=== PATIENT | male | born 1960 | race Caucasian/White ===

== ENCOUNTER 2017-02-25 00:26 | Inpatient (IN) | payer MEDICAID ==
[~2017-02-25] VITALS: Ht 172.7 cm; Wt 81.6 kg
[2017-02-25 04:51] LABS: BASOPHILS % 0.5 % (0.0-2.0); EOSINOPHILS % 1.9 % (0.0-5.0); HEMATOCRIT. 37.8 % (42.0-52.0); HEMOGLOBIN. 13.3 g/dL (14.0-18.0); LYMPHOCYTES % 16.6 % (20.0-50.0); MEAN CORPUSCULAR HEMOGLOBIN 32.3 pg (28.0-32.0); MEAN CORPUSCULAR VOLUME 92.2 fL (80.0-94.0); MEAN PLATELET VOLUME 8.4 fl (7.4-10.4); MONOCYTES % 8.3 % (2.0-8.0); NEUTROPHILS % 72.7 % (40.0-76.0); PLATELET 247 x1000/uL (130-400); RED CELL DISTRIBUTION WIDTH 13.5 % (11.6-14.6)
[2017-02-25 04:53] LABS: PROTHROMBIN TIME 10.2 sec
[2017-02-25 04:58] LABS: CLARITY URINE CLEAR (CLEAR); COLOR URINE YELLOW (YELLOW); GLUCOSE URINE 3+ (NEGATIVE); KETONES URINE TRACE (NEGATIVE); LEUKOCYTE ESTERASE URINE NEGATIVE (NEGATIVE); NITRITE URINE NEGATIVE (NEGATIVE); OCCULT BLOOD URINE TRACE (NEGATIVE); PROTEIN URINE 2+ (NEGATIVE); SPECIFIC GRAVITY URINE 1.044 (1.005-1.030); UROBILINOGEN URINE 0.2 E.U./dL (0.2-1.0)
[2017-02-25 05:02] LABS: CARBON DIOXIDE 30 mEq/L (21-32); CHLORIDE 97 mEq/L (98-107)
[2017-02-25] MEDS ORDERED: PIPERACILLIN/TAZ 3.375G PREMIX 50 ML IV NR (05:30)
[2017-02-25] MEDS ORDERED: VANCOMYCIN 1 G PREMIX 200 ML IV NR (06:00)
[2017-02-25] MEDS ORDERED: SODIUM CHLORIDE 0.9% 1000ML BAG (SEPSIS BOLUS) IV NR (06:00)
[2017-02-25] MEDS ORDERED: INSULIN LISPRO 100 UNITS/ML SUBCUT ONE (06:00)
[2017-02-25 09:00] VITALS: BP 137/80
[2017-02-25 09:10] VITALS: BP 137/80
[2017-02-25] MEDS ORDERED: DEXTROSE 50% WATER 50ML SYRINGE IV PRN (09:45)
[2017-02-25 10:46] LABS: *AMPHETAMINES SCREEN URINE PRESUMTIVE POSITIVE (NEGATIVE); *BARBITURATES SCREEN URINE NEGATIVE (NEGATIVE); *BENZODIAZEPINES SCREEN URINE NEGATIVE (NEGATIVE); *COCAINE SCREEN URINE PRESUMTIVE POSITIVE (NEGATIVE); CANNABINOID URINE SCREEN PRESUMTIVE POSITIVE (NEGATIVE); METHADONE URINE SCREEN NEGATIVE (NEGATIVE); OPIATES URINE SCREEN NEGATIVE (NEGATIVE); PHENCYCLIDINE URINE SCREEN NEGATIVE (NEGATIVE)
[2017-02-25] MEDS: ENOXAPARIN 40MG/0.4ML SYR SUBCUT SCH (10:55)
[2017-02-25 12:00] VITALS: BP 138/88
[2017-02-25] MEDS ORDERED: ZOSYN XX SCH (12:00)
[2017-02-25] MEDS ORDERED: VANCOMYCIN 750 MG PREMIX 150 ML IV SCH (12:00)
[2017-02-25 12:41] LABS: HEMATOCRIT. 38.4 % (42.0-52.0); HEMOGLOBIN. 13.4 g/dL (14.0-18.0); MEAN CORPUSCULAR HEMOGLOBIN 32.5 pg (28.0-32.0); MEAN CORPUSCULAR VOLUME 93.1 fL (80.0-94.0); MEAN PLATELET VOLUME 8.5 fl (7.4-10.4); PLATELET 235 x1000/uL (130-400); RED BLOOD CELL COUNT 4.13 mill/uL (4.7-6.1); RED CELL DISTRIBUTION WIDTH 13.5 % (11.6-14.6)
[2017-02-25] MEDS: BLOOD SUGAR DIAGNOSTIC STRIP TEST SCH ×3 (13:06→21:48)
[2017-02-25] MEDS: ACETAMINOPHEN 325MG TABLET PO PRN (13:08)
[2017-02-25 13:09] LABS: CARBON DIOXIDE 27 mEq/L (21-32); CHLORIDE 102 mEq/L (98-107); HDL CHOLESTEROL 64 mg/dL (40-59); LDL CHOLESTEROL 71 mg/dL (5-100)
[2017-02-25] MEDS: INSULIN LISPRO 100 UNITS/ML SUBCUT SCH ×3 (13:32→21:50)
[2017-02-25 14:31] LABS: PLATELET ESTIMATE NORMAL
[2017-02-25] MEDS: PIPERACILLIN/TAZ 3.375G PREMIX 50 ML IV SCH ×2 (15:52→21:48)
[2017-02-25 16:00] VITALS: BP 129/78
[2017-02-25 20:00] VITALS: BP 141/80
[2017-02-25] MEDS: VANCOMYCIN 750 MG PREMIX 150 ML IV SCH (20:25)
[2017-02-26] VITALS: BP 142/79
[2017-02-26] MEDS: PIPERACILLIN/TAZ 3.375G PREMIX 50 ML IV SCH ×4 (03:04→20:43)
[2017-02-26] MEDS: ACETAMINOPHEN 325MG TABLET PO PRN (03:17)
[2017-02-26 04:00] VITALS: BP 140/72
[2017-02-26] MEDS: VANCOMYCIN 750 MG PREMIX 150 ML IV SCH ×3 (05:09→22:30)
[2017-02-26] MEDS: BLOOD SUGAR DIAGNOSTIC STRIP TEST SCH ×4 (06:55→22:04)
[2017-02-26 08:00] VITALS: BP 159/99
[2017-02-26] MEDS: INSULIN LISPRO 100 UNITS/ML SUBCUT SCH ×4 (08:51→22:13)
[2017-02-26] MEDS: ENOXAPARIN 40MG/0.4ML SYR SUBCUT SCH (08:51)
[2017-02-26 12:00] VITALS: BP 112/72
[2017-02-26] MEDS: HYDROCODONE/ACETAMINOPHEN 5/325MG TABLET PO PRN ×3 (12:47→22:38)
[2017-02-26 16:00] VITALS: BP 123/78
[2017-02-26 20:00] VITALS: BP 135/74
[2017-02-26] MEDS: INSULIN DETEMIR UD 100 UNITS/ML SYR SUBCUT SCH (22:14)
[2017-02-27] VITALS: BP 111/89
[2017-02-27 04:00] VITALS: BP 147/81
[2017-02-27] MEDS: PIPERACILLIN/TAZ 3.375G PREMIX 50 ML IV SCH ×4 (04:15→21:51)
[2017-02-27 06:27] LABS: CARBON DIOXIDE 29 mEq/L (21-32); CHLORIDE 101 mEq/L (98-107)
[2017-02-27 06:37] LABS: BASOPHILS % 0.5 % (0.0-2.0); EOSINOPHILS % 3.8 % (0.0-5.0); HEMATOCRIT. 36.8 % (42.0-52.0); LYMPHOCYTES % 20.3 % (20.0-50.0); MEAN CORPUSCULAR HEMOGLOBIN 32.5 pg (28.0-32.0); MEAN CORPUSCULAR VOLUME 91.8 fL (80.0-94.0); MEAN PLATELET VOLUME 8.7 fl (7.4-10.4); MONOCYTES % 7.8 % (2.0-8.0); NEUTROPHILS % 67.6 % (40.0-76.0); PLATELET 235 x1000/uL (130-400); RED BLOOD CELL COUNT 4.01 mill/uL (4.7-6.1); RED CELL DISTRIBUTION WIDTH 12.9 % (11.6-14.6)
[2017-02-27] MEDS: HYDROCODONE/ACETAMINOPHEN 5/325MG TABLET PO PRN ×4 (06:41→22:35)
[2017-02-27] MEDS: BLOOD SUGAR DIAGNOSTIC STRIP TEST SCH ×4 (06:48→21:51)
[2017-02-27] MEDS: VANCOMYCIN 750 MG PREMIX 150 ML IV SCH ×3 (06:48→22:34)
[2017-02-27 08:00] VITALS: BP 150/78
[2017-02-27] MEDS: INSULIN LISPRO 100 UNITS/ML SUBCUT SCH ×4 (08:22→21:50)
[2017-02-27] MEDS: ENOXAPARIN 40MG/0.4ML SYR SUBCUT SCH (11:00)
[2017-02-27] MEDS: INSULIN DETEMIR UD 100 UNITS/ML SYR SUBCUT SCH ×2 (11:01→22:38)
[2017-02-27 12:00] VITALS: BP 157/80
[2017-02-27 16:00] VITALS: BP 140/90
[2017-02-27] MEDS: MENTHOL/LANOLIN/CALAMINE/ZN OX OINT 71GM TOP PRN ×2 (16:31→22:36)
[2017-02-27 20:00] VITALS: BP 149/85
[2017-02-28] VITALS: BP 148/72
[2017-02-28] MEDS: PIPERACILLIN/TAZ 3.375G PREMIX 50 ML IV SCH ×4 (03:15→20:05)
[2017-02-28 04:00] VITALS: BP 144/82
[2017-02-28] MEDS: HYDROCODONE/ACETAMINOPHEN 5/325MG TABLET PO PRN ×3 (05:02→18:21)
[2017-02-28] MEDS: VANCOMYCIN 750 MG PREMIX 150 ML IV SCH ×3 (05:02→21:49)
[2017-02-28 05:43] LABS: BASOPHILS % 0.5 % (0.0-2.0); EOSINOPHILS % 4.8 % (0.0-5.0); HEMATOCRIT. 40.3 % (42.0-52.0); HEMOGLOBIN. 14.1 g/dL (14.0-18.0); LYMPHOCYTES % 28.2 % (20.0-50.0); MEAN CORPUSCULAR HEMOGLOBIN 32.2 pg (28.0-32.0); MEAN CORPUSCULAR VOLUME 92.2 fL (80.0-94.0); MEAN PLATELET VOLUME 8.5 fl (7.4-10.4); MONOCYTES % 6.2 % (2.0-8.0); NEUTROPHILS % 60.3 % (40.0-76.0); PLATELET 272 x1000/uL (130-400); RED BLOOD CELL COUNT 4.37 mill/uL (4.7-6.1); RED CELL DISTRIBUTION WIDTH 13.5 % (11.6-14.6)
[2017-02-28 06:15] LABS: CHLORIDE 98 mEq/L (98-107)
[2017-02-28 06:22] LABS: CARBON DIOXIDE 29 mEq/L (21-32)
[2017-02-28] MEDS: BLOOD SUGAR DIAGNOSTIC STRIP TEST SCH ×4 (06:55→20:16)
[2017-02-28] MEDS: MENTHOL/LANOLIN/CALAMINE/ZN OX OINT 71GM TOP PRN ×3 (07:04→21:49)
[2017-02-28 08:00] VITALS: BP 161/93
[2017-02-28] MEDS: INSULIN LISPRO 100 UNITS/ML SUBCUT SCH ×4 (08:26→20:30)
[2017-02-28] MEDS: INSULIN DETEMIR UD 100 UNITS/ML SYR SUBCUT SCH ×2 (09:22→21:54)
[2017-02-28] MEDS: ENOXAPARIN 40MG/0.4ML SYR SUBCUT SCH (09:27)
[2017-02-28 12:00] VITALS: BP 149/99
[2017-02-28 16:00] VITALS: BP 137/84
[2017-02-28 20:00] VITALS: BP 160/94
[2017-03-01] VITALS (7 sets, daily range): BP systolic 124–157; BP diastolic 74–90
[2017-03-01] MEDS: HYDROCODONE/ACETAMINOPHEN 5/325MG TABLET PO PRN ×3 (03:10→21:55)
[2017-03-01] MEDS: PIPERACILLIN/TAZ 3.375G PREMIX 50 ML IV SCH ×4 (03:10→20:02)
[2017-03-01] MEDS: VANCOMYCIN 750 MG PREMIX 150 ML IV SCH ×3 (06:18→21:55)
[2017-03-01 06:29] LABS: BASOPHILS % 0.6 % (0.0-2.0); EOSINOPHILS % 5.4 % (0.0-5.0); HEMATOCRIT. 38.2 % (42.0-52.0); HEMOGLOBIN. 13.5 g/dL (14.0-18.0); LYMPHOCYTES % 21.4 % (20.0-50.0); MEAN CORPUSCULAR HEMOGLOBIN 32.5 pg (28.0-32.0); MEAN CORPUSCULAR VOLUME 91.8 fL (80.0-94.0); MEAN PLATELET VOLUME 8.3 fl (7.4-10.4); MONOCYTES % 5.5 % (2.0-8.0); NEUTROPHILS % 67.1 % (40.0-76.0); PLATELET 269 x1000/uL (130-400); RED BLOOD CELL COUNT 4.16 mill/uL (4.7-6.1); RED CELL DISTRIBUTION WIDTH 13.1 % (11.6-14.6)
[2017-03-01] MEDS: BLOOD SUGAR DIAGNOSTIC STRIP TEST SCH ×4 (06:45→21:00)
[2017-03-01 07:35] LABS: CARBON DIOXIDE 30 mEq/L (21-32); CHLORIDE 100 mEq/L (98-107); VANCOMYCIN TROUGH 12.4 ug/mL (5.0-10.0)
[2017-03-01] MEDS: INSULIN LISPRO 100 UNITS/ML SUBCUT SCH ×4 (07:50→21:57)
[2017-03-01] MEDS: ENOXAPARIN 40MG/0.4ML SYR SUBCUT SCH (09:32)
[2017-03-01] MEDS: INSULIN DETEMIR UD 100 UNITS/ML SYR SUBCUT SCH ×2 (11:41→21:57)
[2017-03-01] MEDS: MENTHOL/LANOLIN/CALAMINE/ZN OX OINT 71GM TOP PRN (20:03)
[2017-03-02] MEDS: PIPERACILLIN/TAZ 3.375G PREMIX 50 ML IV SCH ×4 (02:38→20:24)
[2017-03-02 04:00] VITALS: BP 136/85
[2017-03-02] MEDS: VANCOMYCIN 750 MG PREMIX 150 ML IV SCH (05:36)
[2017-03-02] MEDS: HYDROCODONE/ACETAMINOPHEN 5/325MG TABLET PO PRN ×2 (05:37→16:34)
[2017-03-02] MEDS: BLOOD SUGAR DIAGNOSTIC STRIP TEST SCH ×4 (06:07→21:00)
[2017-03-02] MEDS: INSULIN LISPRO 100 UNITS/ML SUBCUT SCH ×4 (07:50→21:40)
[2017-03-02 08:00] VITALS: BP 145/92
[2017-03-02] MEDS: ENOXAPARIN 40MG/0.4ML SYR SUBCUT SCH (09:00)
[2017-03-02] MEDS: INSULIN DETEMIR UD 100 UNITS/ML SYR SUBCUT SCH ×2 (10:27→21:41)
[2017-03-02] MEDS: VANCOMYCIN 1 G PREMIX 200 ML IV SCH ×2 (13:55→21:38)
[2017-03-02 16:31] VITALS: BP 110/68
[2017-03-02 20:00] VITALS: BP 129/77
[2017-03-02] MEDS: MENTHOL/LANOLIN/CALAMINE/ZN OX OINT 71GM TOP PRN (20:24)
[2017-03-03] VITALS: BP 132/76
[2017-03-03] MEDS: PIPERACILLIN/TAZ 3.375G PREMIX 50 ML IV SCH ×2 (03:36→08:27)
[2017-03-03 04:00] VITALS: BP 153/92
[2017-03-03 06:04] VITALS: BP 153/92
[2017-03-03] MEDS: HYDROCODONE/ACETAMINOPHEN 5/325MG TABLET PO PRN (06:04)
[2017-03-03] MEDS: VANCOMYCIN 1 G PREMIX 200 ML IV SCH (06:05)
[2017-03-03] MEDS: BLOOD SUGAR DIAGNOSTIC STRIP TEST SCH ×2 (06:05→12:20)
[2017-03-03] MEDS: ENOXAPARIN 40MG/0.4ML SYR SUBCUT SCH (08:27)
[2017-03-03] MEDS: INSULIN LISPRO 100 UNITS/ML SUBCUT SCH ×2 (08:33→12:50)
[2017-03-03] MEDS: INSULIN DETEMIR UD 100 UNITS/ML SYR SUBCUT SCH (10:20)
== END 2017-03-03 13:30 | disposition left against medical advice (07) | DRG 344 ==
LOC: ER 00:26 → EDBEDREQ 05:31 → 6EST 05:37 → EDBEDREQ 05:41 → EDBEDREQSVC 05:54 → ENRESERV 07:01
PROVIDERS: ADMIT Internal Medicine; ATTEND Internal Medicine
PROC: 02HV33Z Insertion of Infusion Device into Superior Vena Cava, Percutaneous Approach (ICD-10-PCS; principal; 2017-02-28)
PROC: B5181ZA Fluoroscopy of Superior Vena Cava using Low Osmolar Contrast, Guidance (ICD-10-PCS; 2017-02-28)
PROC: B548ZZA Ultrasonography of Superior Vena Cava, Guidance (ICD-10-PCS; 2017-02-28)
DX: E10.69 Type 1 diabetes mellitus with other specified complication (principal); M86.8X7 Other osteomyelitis, ankle and foot; E10.52 Type 1 diabetes mellitus with diabetic peripheral angiopathy with gangrene; E10.621 Type 1 diabetes mellitus with foot ulcer; E10.65 Type 1 diabetes mellitus with hyperglycemia; E44.1 Mild protein-calorie malnutrition; L97.529 Non-pressure chronic ulcer of other part of left foot with unspecified severity; L03.032 Cellulitis of left toe; I10 Essential (primary) hypertension; M20.40 Other hammer toe(s) (acquired), unspecified foot; F10.20 Alcohol dependence, uncomplicated; D64.9 Anemia, unspecified; Z68.27 Body mass index [BMI] 27.0-27.9, adult
CPT/HCPCS: 36415; 36569; 71010; 73660; 73721; 76937; 77001; 80048; 80053; 80061; 80202; 80305; 81001; 82962; 83036; 83605; 85025; 85610; 85651; 87040; 87070; 87077; 87086; 87186; 87205; 93005; 93923; 96365; 96372; 99285; C1725; G0482; J1650; J1815; J2543; J3370; J7030; J7040

== ENCOUNTER 2017-03-11 23:07 | Emergency (ER) | payer MEDICAID ==
[~2017-03-11] VITALS: Ht 172.7 cm; Wt 82.0 kg
[2017-03-12 06:03] VITALS: BP 145/75
== END 2017-03-12 06:16 | disposition left against medical advice (07) ==
LOC: ER 23:07
DX: M86.9 Osteomyelitis, unspecified (principal); F17.200 Nicotine dependence, unspecified, uncomplicated; F11.10 Opioid abuse, uncomplicated; E11.9 Type 2 diabetes mellitus without complications; I10 Essential (primary) hypertension
CPT/HCPCS: 99283; Z7610

== ENCOUNTER 2018-02-18 21:06 | Emergency (ER) | payer MEDICAID ==
[~2018-02-18] VITALS: Ht 172.7 cm; Wt 79.4 kg
[2018-02-18 21:22] VITALS: BP 133/84
== END 2018-02-18 23:00 | disposition left against medical advice (07) ==
LOC: ER 21:06
DX: M79.672 Pain in left foot (principal); E11.9 Type 2 diabetes mellitus without complications; F12.10 Cannabis abuse, uncomplicated; Z89.422 Acquired absence of other left toe(s); Z53.21 Procedure and treatment not carried out due to patient leaving prior to being seen by health care provider

== ENCOUNTER 2018-12-17 07:58 | Inpatient (IN) | payer MEDICAID ==
[~2018-12-17] VITALS: Ht 175.3 cm; Wt 80.7 kg
[2018-12-17] MEDS ORDERED: IPRATROPIUM BROMIDE (0.02%) 0.5MG/2.5ML NEB HHN STA (10:55)
[2018-12-17] MEDS ORDERED: METHYLPREDNISOLONE SOD SUCC 125 MG/2 ML VIAL IV STA (10:55)
[2018-12-17] MEDS ORDERED: ALBUTEROL (0.083%) 2.5MG/3ML NEB HHN SCH (11:00)
[2018-12-17 11:10] LABS: CHLORIDE 102 mEq/L (98-107)
[2018-12-17 11:11] LABS: HEMATOCRIT. 33.8 % (42.0-52.0); HEMOGLOBIN. 11.2 g/dL (14.0-18.0); MEAN CORPUSCULAR HEMOGLOBIN 29.2 pg (28.0-32.0); MEAN CORPUSCULAR VOLUME 87.8 fL (80.0-94.0); MEAN PLATELET VOLUME 8.7 fl (7.4-10.4); PLATELET 290 x1000/uL (130-400); RED BLOOD CELL COUNT 3.85 mill/uL (4.7-6.1); RED CELL DISTRIBUTION WIDTH 15.7 % (11.6-14.6)
[2018-12-17 11:14] LABS: PROTHROMBIN TIME 10.2 sec (9.6-11.0)
[2018-12-17] MEDS ORDERED: ALBUTEROL (0.5%) 2.5MG/0.5ML NEB HHN ONE (11:20)
[2018-12-17] MEDS ORDERED: IPRATROPIUM/ALBUTEROL 0.5-3(2.5)MG/3ML NEB ONE (11:20)
[2018-12-17 11:40] LABS: PLATELET ESTIMATE NORMAL
[2018-12-17] MEDS ORDERED: AZITHROMYCIN 500 MG in DEXT 5% WATER 250 ML IV ONE (11:45)
[2018-12-17] MEDS ORDERED: CEFTRIAXONE 2 G PREMIX 50 ML IV ONE (11:45)
[2018-12-17] MEDS ORDERED: FUROSEMIDE 40MG/4ML VIAL IVP ONE (12:30)
[2018-12-17] MEDS ORDERED: ASPIRIN 325MG EC TABLET PO ONE (12:30)
[2018-12-17] MEDS ORDERED: ONDANSETRON HCL 4MG/2ML INJ IV PRN (13:45)
[2018-12-17] MEDS ORDERED: IPRATROPIUM/ALBUTEROL 0.5-3(2.5)MG/3ML NEB HHN PRN (13:45)
[2018-12-17] MEDS ORDERED: ACETAMINOPHEN 325MG TABLET PO PRN (13:45)
[2018-12-17] MEDS ORDERED: CLONIDINE 0.1MG TABLET PO PRN (13:45)
[2018-12-17] MEDS ORDERED: GUAIFENESIN-DM 200MG-20MG/10ML UDC PO PRN (13:45)
[2018-12-17 16:06] LABS: CLARITY URINE CLEAR (CLEAR); COLOR URINE YELLOW (YELLOW); KETONES URINE NEGATIVE (NEGATIVE); LEUKOCYTE ESTERASE URINE NEGATIVE (NEGATIVE); NITRITE URINE NEGATIVE (NEGATIVE); OCCULT BLOOD URINE 1+ (NEGATIVE); PROTEIN URINE 3+ (NEGATIVE); SPECIFIC GRAVITY URINE 1.022 (1.005-1.030); UROBILINOGEN URINE 0.2 E.U./dL (0.2-1.0)
[2018-12-17 16:20] LABS: *AMPHETAMINES SCREEN URINE NEGATIVE (NEGATIVE); *BARBITURATES SCREEN URINE NEGATIVE (NEGATIVE); *BENZODIAZEPINES SCREEN URINE NEGATIVE (NEGATIVE); *COCAINE SCREEN URINE NEGATIVE (NEGATIVE)
[2018-12-17 16:21] LABS: CANNABINOID URINE SCREEN PRESUMTIVE POSITIVE (NEGATIVE); METHADONE URINE SCREEN NEGATIVE (NEGATIVE); OPIATES URINE SCREEN NEGATIVE (NEGATIVE); PHENCYCLIDINE URINE SCREEN NEGATIVE (NEGATIVE)
[2018-12-17] MEDS: INSULIN LISPRO 100 UNITS/ML SUBCUT SCH ×2 (19:57→22:40)
[2018-12-17] MEDS ORDERED: DEXTROSE 50% WATER 50ML SYRINGE IV PRN (20:00)
[2018-12-17 20:21] VITALS: BP 125/64
[2018-12-17] MEDS: BLOOD SUGAR DIAGNOSTIC STRIP TEST SCH (20:30)
[2018-12-17] MEDS ORDERED: ENOXAPARIN 40MG/0.4ML SYR SUBCUT SCH (21:00)
[2018-12-17] MEDS ORDERED: IPRATROPIUM/ALBUTEROL 0.5-3(2.5)MG/3ML NEB HHN SCH (22:00)
[2018-12-17] MEDS: GUAIFENESIN 600MG ER TABLET PO SCH (22:36)
[2018-12-18 00:19] VITALS: BP 101/40
[2018-12-18 04:32] VITALS: BP 116/62
[2018-12-18 06:13] LABS: HEMATOCRIT. 33.2 % (42.0-52.0); HEMOGLOBIN. 11.1 g/dL (14.0-18.0); MEAN CORPUSCULAR VOLUME 86.8 fL (80.0-94.0); MEAN PLATELET VOLUME 8.8 fl (7.4-10.4); PLATELET 296 x1000/uL (130-400); RED BLOOD CELL COUNT 3.83 mill/uL (4.7-6.1); RED CELL DISTRIBUTION WIDTH 16.1 % (11.6-14.6)
[2018-12-18] MEDS: BLOOD SUGAR DIAGNOSTIC STRIP TEST SCH (06:30)
[2018-12-18 06:31] LABS: CHLORIDE 104 mEq/L (98-107)
[2018-12-18 08:00] VITALS: BP 105/69
[2018-12-18] MEDS ORDERED: CEFTRIAXONE 1 G PREMIX 50 ML IV SCH (08:00)
[2018-12-18] MEDS: INSULIN LISPRO 100 UNITS/ML SUBCUT SCH (08:22)
[2018-12-18] MEDS: GUAIFENESIN 600MG ER TABLET PO SCH (08:51)
[2018-12-18] MEDS ORDERED: AZITHROMYCIN 500 MG TABLET PO SCH (09:00)
[2018-12-18] MEDS ORDERED: FUROSEMIDE 40MG/4ML VIAL IVP SCH (09:00)
[2018-12-18] MEDS ORDERED: INSULIN GLARGINE UD 100 UNITS/ML SYR SUBCUT SCH (10:00)
[2018-12-18 10:38] LABS: PLATELET ESTIMATE NORMAL
[2018-12-18 13:00] VITALS: BP 104/53
[2018-12-18 14:28] VITALS: BP 104/53
[2018-12-18 16:00] VITALS: BP 126/73
[2018-12-19] MEDS ORDERED: CEFTRIAXONE 1 G PREMIX 50 ML IV SCH (08:00)
== END 2018-12-18 17:01 | disposition home or self-care (01) | DRG 139 ==
LOC: ER 07:58 → 7WST 12:28 → EDBEDREQ 12:30 → ENRESERV 19:46
PROVIDERS: ADMIT Internal Medicine; ATTEND Internal Medicine
DX: J18.1 Lobar pneumonia, unspecified organism (principal); I50.43 Acute on chronic combined systolic (congestive) and diastolic (congestive) heart failure; E44.0 Moderate protein-calorie malnutrition; I11.0 Hypertensive heart disease with heart failure; E11.65 Type 2 diabetes mellitus with hyperglycemia; D64.9 Anemia, unspecified; J44.0 Chronic obstructive pulmonary disease with (acute) lower respiratory infection; E87.1 Hypo-osmolality and hyponatremia; F15.10 Other stimulant abuse, uncomplicated; F12.10 Cannabis abuse, uncomplicated; Z96.659 Presence of unspecified artificial knee joint; Z71.51 Drug abuse counseling and surveillance of drug abuser; Z91.14 Patient's other noncompliance with medication regimen; Z68.26 Body mass index [BMI] 26.0-26.9, adult; Z79.84 Long term (current) use of oral hypoglycemic drugs
CPT/HCPCS: 36415; 71045; 80048; 80305; 82962; 83036; 83880; 84484; 93005; 93306; 94640; 96365; 96368; 96375; 99285; J0456; J0696; J1650; J1815; J1940; J2930; J7060; J7611; J7620

== ENCOUNTER 2019-05-11 01:25 | Inpatient (IN) | payer MEDICAID ==
[~2019-05-11] VITALS: Ht 172.7 cm; Wt 88.5 kg
[2019-05-11] MEDS ORDERED: VANCOMYCIN 1 G PREMIX 200 ML IV SCH (04:30)
[2019-05-11] MEDS ORDERED: MORPHINE SULFATE 2 MG/ML CPJ (NOT FOR IM USE) IV ONE (04:30)
[2019-05-11] MEDS ORDERED: ONDANSETRON HCL 4MG/2ML INJ IV ONE (04:30)
[2019-05-11 04:54] LABS: BASOPHILS % 0.7 % (0.0-2.0); EOSINOPHILS % 3.7 % (0.0-5.0); HEMATOCRIT. 30.8 % (42.0-52.0); HEMOGLOBIN. 10.6 g/dL (14.0-18.0); LYMPHOCYTES % 17.5 % (20.0-50.0); MEAN CORPUSCULAR HEMOGLOBIN 31.9 pg (28.0-32.0); MEAN CORPUSCULAR VOLUME 92.3 fL (80.0-94.0); MEAN PLATELET VOLUME 8.4 fl (7.4-10.4); MONOCYTES % 8.8 % (2.0-8.0); NEUTROPHILS % 69.3 % (40.0-76.0); PLATELET 197 x1000/uL (130-400); RED BLOOD CELL COUNT 3.33 mill/uL (4.7-6.1); RED CELL DISTRIBUTION WIDTH 14.7 % (11.6-14.6)
[2019-05-11 04:56] LABS: CHLORIDE 107 mEq/L (98-107)
[2019-05-11 04:58] LABS: PROTHROMBIN TIME 10.1 sec (9.6-11.0)
[2019-05-11 08:32] LABS: COLOR URINE YELLOW (YELLOW); KETONES URINE NEGATIVE (NEGATIVE); LEUKOCYTE ESTERASE URINE NEGATIVE (NEGATIVE); NITRITE URINE NEGATIVE (NEGATIVE); OCCULT BLOOD URINE 1+ (NEGATIVE); PH URINE 5.5 (4.5-8.0); PROTEIN URINE 3+ (NEGATIVE)
[2019-05-11 08:33] LABS: CLARITY URINE CLEAR (CLEAR)
[2019-05-11 09:00] VITALS: BP 123/69
[2019-05-11 10:05] VITALS: BP 141/82
[2019-05-11] MEDS ORDERED: ONDANSETRON HCL 4MG/2ML INJ IV PRN (10:15)
[2019-05-11] MEDS ORDERED: ACETAMINOPHEN 325MG TABLET PO PRN (11:00)
[2019-05-11 12:00] VITALS: BP 129/76
[2019-05-11] MEDS: HYDROCODONE/ACETAMINOPHEN 5/325MG TABLET PO PRN (12:24)
[2019-05-11] MEDS: PIPERACILLIN/TAZOBACTAM 3.375 G in DEXT 5% WATER 100 ML IV SCH ×2 (13:15→18:09)
[2019-05-11] MEDS ORDERED: LIDOCAINE HCL 1% 20ML VIAL (Pyxis) INJ INFIL NR (13:30)
[2019-05-11] MEDS: VANCOMYCIN 1 G PREMIX 200 ML IV SCH ×2 (14:20→20:16)
[2019-05-11 16:00] VITALS: BP 125/73
[2019-05-11] MEDS: METFORMIN HCL 500MG TABLET PO SCH (18:01)
[2019-05-11] MEDS ORDERED: POTASSIUM CHLORIDE 20MEQ TABLET SR PO NR (19:45)
[2019-05-11 20:00] VITALS: BP 152/85
[2019-05-12] VITALS: BP 147/84
[2019-05-12] MEDS: PIPERACILLIN/TAZOBACTAM 3.375 G in DEXT 5% WATER 100 ML IV SCH ×5 (00:25→23:47)
[2019-05-12 04:00] VITALS: BP 116/77
[2019-05-12] MEDS: HYDROCODONE/ACETAMINOPHEN 5/325MG TABLET PO PRN ×3 (04:04→23:42)
[2019-05-12] MEDS: VANCOMYCIN 1 G PREMIX 200 ML IV SCH ×3 (06:21→21:04)
[2019-05-12 07:09] LABS: BASOPHILS % 0.5 % (0.0-2.0); EOSINOPHILS % 4.5 % (0.0-5.0); HEMATOCRIT. 31.3 % (42.0-52.0); HEMOGLOBIN. 10.8 g/dL (14.0-18.0); MEAN CORPUSCULAR HEMOGLOBIN 31.5 pg (28.0-32.0); MEAN CORPUSCULAR VOLUME 91.3 fL (80.0-94.0); MEAN PLATELET VOLUME 8.6 fl (7.4-10.4); MONOCYTES % 7.2 % (2.0-8.0); NEUTROPHILS % 71.8 % (40.0-76.0); PLATELET 216 x1000/uL (130-400); RED BLOOD CELL COUNT 3.43 mill/uL (4.7-6.1); RED CELL DISTRIBUTION WIDTH 14.5 % (11.6-14.6)
[2019-05-12 07:45] LABS: CHLORIDE 104 mEq/L (98-107)
[2019-05-12] MEDS: METFORMIN HCL 500MG TABLET PO SCH ×3 (07:52→18:01)
[2019-05-12] MEDS ORDERED: BUPIVACAINE HCL/PF 0.5% (5MG/ML) 10ML ONE (07:59)
[2019-05-12] MEDS ORDERED: LIDOCAINE HCL 1% 20ML VIAL (Pyxis) INJ ONE (07:59)
[2019-05-12 08:00] VITALS: BP 119/74
[2019-05-12] MEDS ORDERED: NORMAL SALINE 0.9% 10 ML SYR ONE (08:00)
[2019-05-12] MEDS ORDERED: BACITRACIN 50,000 UNITS/VIAL ONE (08:00)
[2019-05-12] MEDS ORDERED: DIPHENHYDRAMINE 50MG/ML VIAL ONE (08:37)
[2019-05-12] MEDS ORDERED: PROPOFOL 200MG/20ML VIAL IV ONE (08:37)
[2019-05-12] MEDS ORDERED: ONDANSETRON HCL 4MG/2ML INJ ONE (08:37)
[2019-05-12] MEDS ORDERED: LIDOCAINE HCL/PF 1% 10 MG/ML 5ML VIAL ONE (08:38)
[2019-05-12] MEDS ORDERED: CEFAZOLIN SODIUM 1000MG/VIAL ONE (08:38)
[2019-05-12] MEDS ORDERED: MIDAZOLAM HCL 2 MG/2 ML VIAL ONE (09:00)
[2019-05-12] MEDS ORDERED: FENTANYL CITRATE/PF 50MCG/ML 2ML VIAL ONE (09:00)
[2019-05-12 09:03] LABS: T4 FREE 1.13 ng/dL (0.76-1.46)
[2019-05-12 09:12] LABS: *AMPHETAMINES SCREEN URINE PRESUMTIVE POSITIVE (NEGATIVE); *BARBITURATES SCREEN URINE NEGATIVE (NEGATIVE); *BENZODIAZEPINES SCREEN URINE NEGATIVE (NEGATIVE)
[2019-05-12 09:13] LABS: *COCAINE SCREEN URINE NEGATIVE (NEGATIVE); CANNABINOID URINE SCREEN NEGATIVE (NEGATIVE); METHADONE URINE SCREEN NEGATIVE (NEGATIVE); OPIATES URINE SCREEN PRESUMTIVE POSITIVE (NEGATIVE); PHENCYCLIDINE URINE SCREEN NEGATIVE (NEGATIVE)
[2019-05-12] MEDS ORDERED: HYDROMORPHONE HCL/PF 2MG/ML CPJ IV PRN (10:30)
[2019-05-12] MEDS ORDERED: ONDANSETRON HCL 4MG/2ML INJ IV PRN (10:30)
[2019-05-12 12:00] VITALS: BP 139/76
[2019-05-12 16:00] VITALS: BP 122/66
[2019-05-12 16:12] LABS: CREATINE KINASE MB FRACTION 1.2 ng/mL (0.5-3.6)
[2019-05-12 20:00] VITALS: BP 143/78
[2019-05-12] MEDS: CARVEDILOL 3.125 MG TABLET PO SCH (20:52)
[2019-05-13] VITALS: BP 121/66
[2019-05-13 00:57] LABS: CREATINE KINASE 49 IU/L (39-308); CREATINE KINASE MB FRACTION < 1.0 ng/mL (0.5-3.6)
[2019-05-13 04:00] VITALS: BP 123/59
[2019-05-13] MEDS: VANCOMYCIN 1 G PREMIX 200 ML IV SCH ×2 (05:06→14:00)
[2019-05-13] MEDS: PIPERACILLIN/TAZOBACTAM 3.375 G in DEXT 5% WATER 100 ML IV SCH ×2 (05:10→12:57)
[2019-05-13] MEDS: HYDROCODONE/ACETAMINOPHEN 5/325MG TABLET PO PRN (06:27)
[2019-05-13] MEDS: METFORMIN HCL 500MG TABLET PO SCH (07:50)
[2019-05-13 08:00] VITALS: BP 116/74
[2019-05-13 08:34] LABS: VANCOMYCIN TROUGH 32.1 ug/mL (5.0-10.0)
[2019-05-13] MEDS ORDERED: LOSARTAN POTASSIUM 50 MG TABLET PO SCH (09:00)
[2019-05-13] MEDS: CARVEDILOL 3.125 MG TABLET PO SCH (09:24)
[2019-05-13 12:00] VITALS: BP 146/78
[2019-05-13] MEDS ORDERED: DOXY100T2 MT (14:04)
[2019-05-13] MEDS ORDERED: HYDR-4001 MT (14:04)
[2019-05-13] MEDS ORDERED: AMOX-424 MT (14:04)
[2019-05-13 15:04] VITALS: BP 155/78
[2019-05-13 16:00] VITALS: BP 141/71
== END 2019-05-13 16:28 | disposition home or self-care (01) | DRG 314 ==
LOC: ER 01:25 → 6EST 05:55 → ENRESERV 08:04 → EDBEDREQ 08:18
PROVIDERS: ADMIT Internal Medicine; ATTEND Internal Medicine
PROC: 0QBQ0ZZ Excision of Right Toe Phalanx, Open Approach (ICD-10-PCS; principal; 2019-05-11)
PROC: 0JDQ0ZZ Extraction of Right Foot Subcutaneous Tissue and Fascia, Open Approach (ICD-10-PCS; 2019-05-11)
PROC: 0Y6V0Z3 Detachment at Right 4th Toe, Low, Open Approach (ICD-10-PCS; 2019-05-12)
PROC: 0JBR0ZZ Excision of Left Foot Subcutaneous Tissue and Fascia, Open Approach (ICD-10-PCS; 2019-05-12)
DX: E11.69 Type 2 diabetes mellitus with other specified complication (principal); I42.9 Cardiomyopathy, unspecified; E44.0 Moderate protein-calorie malnutrition; M86.8X7 Other osteomyelitis, ankle and foot; E11.51 Type 2 diabetes mellitus with diabetic peripheral angiopathy without gangrene; I50.22 Chronic systolic (congestive) heart failure; I11.0 Hypertensive heart disease with heart failure; L97.519 Non-pressure chronic ulcer of other part of right foot with unspecified severity; E11.42 Type 2 diabetes mellitus with diabetic polyneuropathy; E11.621 Type 2 diabetes mellitus with foot ulcer; F15.90 Other stimulant use, unspecified, uncomplicated; F12.90 Cannabis use, unspecified, uncomplicated; L84 Corns and callosities; E78.5 Hyperlipidemia, unspecified; E11.622 Type 2 diabetes mellitus with other skin ulcer; Z96.659 Presence of unspecified artificial knee joint; Z87.891 Personal history of nicotine dependence; Z91.19 Patient's noncompliance with other medical treatment and regimen; Z86.73 Personal history of transient ischemic attack (TIA), and cerebral infarction without residual deficits; Z91.14 Patient's other noncompliance with medication regimen; Z68.29 Body mass index [BMI] 29.0-29.9, adult; Z79.899 Other long term (current) drug therapy; Z71.51 Drug abuse counseling and surveillance of drug abuser
CPT/HCPCS: 36415; 73630; 73721; 80048; 80061; 80202; 80305; 81003; 82550; 82553; 82962; 83036; 83605; 83880; 84439; 84443; 84484; 85651; 86140; 87070; 87075; 87077; 87186; 88305; 88311; 93005; 93306; 93971; 96365; 97162; 99285; C1893; J0690; J1200; J2250; J2270; J2405; J2543; J2704; J3010; J3370; J3490; J7060

== ENCOUNTER 2019-06-14 00:12 | Emergency (ER) | payer MEDICAID ==
[~2019-06-14 00:12] MED LIST: AMOX-424 MT; DOXY100T2 MT; HYDR-4001 MT
== END 2019-06-14 03:06 | disposition left against medical advice (07) ==
LOC: ER 02:05
DX: Z53.21 Procedure and treatment not carried out due to patient leaving prior to being seen by health care provider (principal)

== ENCOUNTER 2019-06-14 07:00 | Inpatient (IN) | payer MEDICAID ==
[~2019-06-14] VITALS: Ht 172.7 cm; Wt 92.1 kg
[2019-06-14] MEDS ORDERED: CLINDAMYCIN 600 MG in DEXTROSE 5% WATER 50 ML IV ONE (07:45)
[2019-06-14 08:01] LABS: BASOPHILS % 0.4 % (0.0-2.0); EOSINOPHILS % 4.7 % (0.0-5.0); HEMOGLOBIN. 11.3 g/dL (14.0-18.0); MEAN CORPUSCULAR HEMOGLOBIN 32.3 pg (28.0-32.0); MEAN PLATELET VOLUME 8.1 fl (7.4-10.4); MONOCYTES % 7.6 % (2.0-8.0); NEUTROPHILS % 69.3 % (40.0-76.0); PLATELET 249 x1000/uL (130-400); RED BLOOD CELL COUNT 3.51 mill/uL (4.7-6.1); RED CELL DISTRIBUTION WIDTH 15.1 % (11.6-14.6)
[2019-06-14 08:06] LABS: CHLORIDE 104 mEq/L (98-107)
[2019-06-14 08:12] LABS: INR 0.9; PROTHROMBIN TIME 9.6 sec (9.6-11.0)
[2019-06-14] MEDS ORDERED: VANCOMYCIN 1 G PREMIX 200 ML IV SCH (09:00)
[2019-06-14 13:15] VITALS: BP 150/86
[2019-06-14 14:00] VITALS: BP 150/86
[2019-06-14] MEDS ORDERED: CLONIDINE 0.1MG TABLET PO PRN (14:00)
[2019-06-14] MEDS ORDERED: DEXTROSE 50% WATER 50ML SYRINGE IV PRN (14:00)
[2019-06-14] MEDS ORDERED: ONDANSETRON HCL 4MG/2ML INJ IV PRN (14:00)
[2019-06-14 14:45] LABS: *AMPHETAMINES SCREEN URINE PRESUMTIVE POSITIVE (NEGATIVE); *BARBITURATES SCREEN URINE NEGATIVE (NEGATIVE); *BENZODIAZEPINES SCREEN URINE NEGATIVE (NEGATIVE)
[2019-06-14 14:46] LABS: *COCAINE SCREEN URINE NEGATIVE (NEGATIVE); CANNABINOID URINE SCREEN PRESUMTIVE POSITIVE (NEGATIVE); METHADONE URINE SCREEN NEGATIVE (NEGATIVE); OPIATES URINE SCREEN NEGATIVE (NEGATIVE); PHENCYCLIDINE URINE SCREEN NEGATIVE (NEGATIVE)
[2019-06-14] MEDS ORDERED: INFLUENZA VIRUS VACCINE(AFLURIA) 0.5ML SYR IM ONE (16:15)
[2019-06-14] MEDS: BLOOD SUGAR DIAGNOSTIC STRIP TEST SCH ×2 (17:06→20:56)
[2019-06-14] MEDS: INSULIN LISPRO 100 UNITS/ML SUBCUT SCH ×2 (17:30→21:06)
[2019-06-14] MEDS: VANCOMYCIN 1 G PREMIX 200 ML IV SCH ×2 (17:30→20:46)
[2019-06-14 20:00] VITALS: BP 133/73
[2019-06-14] MEDS: AMLODIPINE 5MG TABLET PO SCH (20:44)
[2019-06-15] VITALS: BP 118/78
[2019-06-15 04:00] VITALS: BP 140/76
[2019-06-15] MEDS: VANCOMYCIN 1 G PREMIX 200 ML IV SCH (04:52)
[2019-06-15] MEDS: BLOOD SUGAR DIAGNOSTIC STRIP TEST SCH ×4 (04:52→21:00)
[2019-06-15] MEDS: INSULIN LISPRO 100 UNITS/ML SUBCUT SCH ×4 (05:01→21:54)
[2019-06-15] MEDS: GUAIFENESIN-DM 200MG-20MG/10ML UDC PO PRN ×3 (05:38→20:49)
[2019-06-15 07:10] LABS: BASOPHILS % 0.8 % (0.0-2.0); EOSINOPHILS % 7.2 % (0.0-5.0); HEMATOCRIT. 32.6 % (42.0-52.0); HEMOGLOBIN. 11.1 g/dL (14.0-18.0); LYMPHOCYTES % 16.8 % (20.0-50.0); MEAN CORPUSCULAR HEMOGLOBIN 31.1 pg (28.0-32.0); MEAN CORPUSCULAR VOLUME 91.9 fL (80.0-94.0); MEAN PLATELET VOLUME 9.1 fl (7.4-10.4); NEUTROPHILS % 68.2 % (40.0-76.0); PLATELET 263 x1000/uL (130-400); RED BLOOD CELL COUNT 3.55 mill/uL (4.7-6.1); RED CELL DISTRIBUTION WIDTH 14.8 % (11.6-14.6)
[2019-06-15 07:33] LABS: CHLORIDE 102 mEq/L (98-107)
[2019-06-15 07:46] LABS: VANCOMYCIN TROUGH 15.4 ug/mL (5.0-10.0)
[2019-06-15 08:00] VITALS: BP 140/81
[2019-06-15] MEDS: AMLODIPINE 5MG TABLET PO SCH ×2 (09:11→20:50)
[2019-06-15] MEDS: LISINOPRIL 20MG TABLET PO SCH (09:11)
[2019-06-15 12:00] VITALS: BP 133/77
[2019-06-15] MEDS: VANCOMYCIN 1250MG in DEXTROSE 5% WATER 250ML IV SCH ×2 (12:36→20:50)
[2019-06-15 16:00] VITALS: BP 140/81
[2019-06-15] MEDS: PIPERACILLIN/TAZOBACTAM 3.375 G in DEXT 5% WATER 100 ML IV SCH (17:47)
[2019-06-15] MEDS: HYDROCODONE/ACETAMINOPHEN 5/325MG TABLET PO PRN (19:04)
[2019-06-15 20:00] VITALS: BP 141/74
[2019-06-15] MEDS: INSULIN GLARGINE UD 100 UNITS/ML SYR SUBCUT SCH (21:54)
[2019-06-16] VITALS: BP 138/72
[2019-06-16] MEDS: PIPERACILLIN/TAZOBACTAM 3.375 G in DEXT 5% WATER 100 ML IV SCH ×4 (00:33→18:10)
[2019-06-16 04:00] VITALS: BP 137/72
[2019-06-16] MEDS: VANCOMYCIN 1250MG in DEXTROSE 5% WATER 250ML IV SCH ×3 (04:57→21:25)
[2019-06-16] MEDS: BLOOD SUGAR DIAGNOSTIC STRIP TEST SCH ×4 (06:14→20:50)
[2019-06-16] MEDS: GUAIFENESIN-DM 200MG-20MG/10ML UDC PO PRN ×2 (06:26→18:15)
[2019-06-16] MEDS: INSULIN LISPRO 100 UNITS/ML SUBCUT SCH ×4 (06:28→20:50)
[2019-06-16 08:00] VITALS: BP 169/86
[2019-06-16] MEDS: AMLODIPINE 5MG TABLET PO SCH ×2 (09:24→21:25)
[2019-06-16] MEDS: LISINOPRIL 20MG TABLET PO SCH (09:25)
[2019-06-16] MEDS: HYDROCODONE/ACETAMINOPHEN 5/325MG TABLET PO PRN ×2 (10:38→21:26)
[2019-06-16] MEDS: INSULIN GLARGINE UD 100 UNITS/ML SYR SUBCUT SCH ×2 (10:43→21:33)
[2019-06-16 12:00] VITALS: BP 118/64
[2019-06-16 16:00] VITALS: BP 150/87
[2019-06-16 20:00] VITALS: BP 151/82
[2019-06-17] VITALS: BP 124/67
[2019-06-17] MEDS: PIPERACILLIN/TAZOBACTAM 3.375 G in DEXT 5% WATER 100 ML IV SCH ×4 (00:34→17:35)
[2019-06-17 04:00] VITALS: BP 130/69
[2019-06-17] MEDS: VANCOMYCIN 1250MG in DEXTROSE 5% WATER 250ML IV SCH (05:55)
[2019-06-17] MEDS: INSULIN LISPRO 100 UNITS/ML SUBCUT SCH ×3 (06:07→17:51)
[2019-06-17] MEDS: BLOOD SUGAR DIAGNOSTIC STRIP TEST SCH ×3 (06:08→17:29)
[2019-06-17 08:00] VITALS: BP 153/85
[2019-06-17] MEDS: AMLODIPINE 5MG TABLET PO SCH (09:16)
[2019-06-17] MEDS: LISINOPRIL 20MG TABLET PO SCH (09:16)
[2019-06-17] MEDS: INSULIN GLARGINE UD 100 UNITS/ML SYR SUBCUT SCH (11:13)
[2019-06-17 12:00] VITALS: BP 149/80
[2019-06-17 16:27] VITALS: BP 148/74
[2019-06-17] MEDS ORDERED: VANCOMYCIN 1 G PREMIX 200 ML IV SCH (17:00)
[2019-06-17 17:49] VITALS: BP 148/74
[2019-06-17] MEDS: HYDROCODONE/ACETAMINOPHEN 5/325MG TABLET PO PRN (17:49)
== END 2019-06-17 19:10 | DRG 320 ==
LOC: ER 07:00 → 6WST 07:10 → UNDOADMIN 07:10 → 8WST 09:14 → EDBEDREQ 09:24 → ENRESERV 12:45
PROVIDERS: ADMIT Internal Medicine; ATTEND Internal Medicine
PROC: 0JBR0ZZ Excision of Left Foot Subcutaneous Tissue and Fascia, Open Approach (ICD-10-PCS; principal; 2019-06-15)
PROC: 0QBQ0ZZ Excision of Right Toe Phalanx, Open Approach (ICD-10-PCS; 2019-06-15)
DX: T87.81 Dehiscence of amputation stump (principal); E11.42 Type 2 diabetes mellitus with diabetic polyneuropathy; E11.621 Type 2 diabetes mellitus with foot ulcer; M86.9 Osteomyelitis, unspecified; E44.1 Mild protein-calorie malnutrition; I50.22 Chronic systolic (congestive) heart failure; I11.0 Hypertensive heart disease with heart failure; T87.43 Infection of amputation stump, right lower extremity; Y83.5 Amputation of limb(s) as the cause of abnormal reaction of the patient, or of later complication, without mention of misadventure at the time of the procedure; E11.69 Type 2 diabetes mellitus with other specified complication; F15.90 Other stimulant use, unspecified, uncomplicated; F12.90 Cannabis use, unspecified, uncomplicated; Z96.659 Presence of unspecified artificial knee joint; L97.529 Non-pressure chronic ulcer of other part of left foot with unspecified severity; Z79.899 Other long term (current) drug therapy; Z68.30 Body mass index [BMI] 30.0-30.9, adult; Z71.51 Drug abuse counseling and surveillance of drug abuser; Z89.421 Acquired absence of other right toe(s); Z89.422 Acquired absence of other left toe(s); Z86.73 Personal history of transient ischemic attack (TIA), and cerebral infarction without residual deficits; Z91.14 Patient's other noncompliance with medication regimen; Y92.89 Other specified places as the place of occurrence of the external cause
CPT/HCPCS: 36415; 71045; 73630; 80048; 80202; 80305; 82962; 85651; 86140; 87070; 87075; 87077; 87186; 93971; 97162; 99285; J1815; J2543; J3370; J3490; J7040; J7060

== ENCOUNTER 2019-06-22 13:13 | Emergency (ER) | payer MEDICAID ==
[~2019-06-22] VITALS: Ht 172.7 cm; Wt 110.0 kg
[2019-06-22] MEDS ORDERED: SULFAMETHOXAZOLE/TRIMETHOPRIM 800/160MG TABLET PO ONE (16:30)
[2019-06-22] MEDS ORDERED: AMOXICILLIN/POTASSIUM CLAVULANATE 875/125MG TAB PO ONE (16:30)
[2019-06-22 21:31] VITALS: BP 136/98
== END 2019-06-22 23:09 | disposition home or self-care (01) ==
LOC: ER 13:13
DX: E11.621 Type 2 diabetes mellitus with foot ulcer (principal); E11.40 Type 2 diabetes mellitus with diabetic neuropathy, unspecified; L97.511 Non-pressure chronic ulcer of other part of right foot limited to breakdown of skin; I10 Essential (primary) hypertension; F17.200 Nicotine dependence, unspecified, uncomplicated; Z89.421 Acquired absence of other right toe(s); Z96.659 Presence of unspecified artificial knee joint
CPT/HCPCS: 99283

== ENCOUNTER 2020-01-28 23:52 | Emergency (ER) | payer MEDICAID ==
[~2020-01-28] VITALS: Ht 172.7 cm; Wt 86.9 kg
[2020-01-29 02:05] LABS: BASOPHILS % 1.3 % (0.0-2.0); EOSINOPHILS % 0.5 % (0.0-5.0); HEMATOCRIT. 32.2 % (42.0-52.0); HEMOGLOBIN. 10.7 g/dL (14.0-18.0); LYMPHOCYTES % 18.4 % (20.0-50.0); MEAN CORPUSCULAR HEMOGLOBIN 30.3 pg (28.0-32.0); MEAN CORPUSCULAR VOLUME 91.3 fL (80.0-94.0); MEAN PLATELET VOLUME 9.5 fl (7.4-10.4); MONOCYTES % 5.4 % (2.0-8.0); NEUTROPHILS % 74.4 % (40.0-76.0); PLATELET 306 x1000/uL (130-400); RED BLOOD CELL COUNT 3.53 mill/uL (4.7-6.1); RED CELL DISTRIBUTION WIDTH 14.3 % (11.6-14.6)
[2020-01-29 02:11] LABS: CHLORIDE 100 mEq/L (98-107)
[2020-01-29] MEDS ORDERED: HEPARIN 5000 UNITS/ML VIAL IV NR (02:45)
[2020-01-29] MEDS ORDERED: HEPARIN 25,000 UNITS PREMIX 500 ML IV PRN (02:45)
[2020-01-29] MEDS ORDERED: ASPIRIN 325MG EC TABLET PO NR (02:45)
[2020-01-29 03:45] LABS: CLARITY URINE CLEAR (CLEAR); COLOR URINE YELLOW (YELLOW); SPECIFIC GRAVITY URINE 1.038 (1.005-1.030)
[2020-01-29 03:46] LABS: KETONES URINE NEGATIVE (NEGATIVE); LEUKOCYTE ESTERASE URINE NEGATIVE (NEGATIVE); NITRITE URINE NEGATIVE (NEGATIVE); OCCULT BLOOD URINE 2+ (NEGATIVE); PROTEIN URINE 3+ (NEGATIVE)
[2020-01-29 04:08] VITALS: BP 142/100
[2020-01-29] MEDS ORDERED: HEPARIN BOLUS PRN aPTT <30 IV (04:15)
[2020-01-29] MEDS ORDERED: HEPARIN BOLUS PRN aPTT 30-44 IV (04:15)
[2020-01-29] MEDS ORDERED: HEPARIN 25,000 UNITS PREMIX 500 ML IV SCH (04:15)
== END 2020-01-29 04:20 | disposition short-term general hospital (02) ==
LOC: ER 23:52
DX: I21.3 ST elevation (STEMI) myocardial infarction of unspecified site (principal); L97.529 Non-pressure chronic ulcer of other part of left foot with unspecified severity; E11.9 Type 2 diabetes mellitus without complications; E78.00 Pure hypercholesterolemia, unspecified; I25.10 Atherosclerotic heart disease of native coronary artery without angina pectoris; I11.9 Hypertensive heart disease without heart failure; F17.210 Nicotine dependence, cigarettes, uncomplicated; Z96.659 Presence of unspecified artificial knee joint
CPT/HCPCS: 36415; 71045; 80053; 81003; 82962; 83880; 84484; 85025; 85730; 93005; 96374; 99291; J1644; Z7610

== ENCOUNTER 2020-03-31 00:53 | Inpatient (IN) | payer MEDICAID ==
[~2020-03-31] VITALS: Ht 172.7 cm; Wt 131.1 kg
[2020-03-31] MEDS ORDERED: ASPIRIN 81MG TABLET PO ONE (01:15)
[2020-03-31 01:54] LABS: BASOPHILS % 0.7 % (0.0-2.0); EOSINOPHILS % 2.3 % (0.0-5.0); HEMATOCRIT. 26.7 % (42.0-52.0); HEMOGLOBIN. 8.6 g/dL (14.0-18.0); MEAN CORPUSCULAR HEMOGLOBIN 27.4 pg (28.0-32.0); MEAN CORPUSCULAR VOLUME 85.4 fL (80.0-94.0); MEAN PLATELET VOLUME 8.8 fl (7.4-10.4); MONOCYTES % 6.1 % (2.0-8.0); NEUTROPHILS % 73.9 % (40.0-76.0); PLATELET 191 x1000/uL (130-400); RED BLOOD CELL COUNT 3.13 mill/uL (4.7-6.1); RED CELL DISTRIBUTION WIDTH 17.9 % (11.6-14.6)
[2020-03-31 01:56] LABS: CHLORIDE 107 mEq/L (98-107)
[2020-03-31] MEDS ORDERED: FUROSEMIDE 100MG/10ML VIAL IVP SCH (02:00)
[2020-03-31 02:48] LABS: INR 1.1; PARTIAL THROMBOPLASTIN TIME 26.8 sec (23.4-31.0)
[2020-03-31] MEDS ORDERED: ENOXAPARIN 100MG/ML SYR SUBCUT SCH (03:00)
[2020-03-31] MEDS ORDERED: IOHEXOL-350 100 ML BOTTLE ONE (03:23)
[2020-03-31 09:00] VITALS: BP 109/71
[2020-03-31] MEDS ORDERED: FERR324T4 MT (10:03)
[2020-03-31] MEDS ORDERED: FURO80TA3 MT (10:03)
[2020-03-31] MEDS ORDERED: CARV3.1242 MT (10:03)
[2020-03-31] MEDS ORDERED: ASPI-1158 MT (10:03)
[2020-03-31] MEDS ORDERED: VALS40TA11 MT (10:03)
[2020-03-31] MEDS ORDERED: METF-414 MT (10:03)
[2020-03-31] MEDS ORDERED: ATOR80TA MT (10:03)
[2020-03-31] MEDS ORDERED: MAGNESIUM/ALUMINUM HYDROXIDE/SIMETHICONE 30ML UDC PO PRN (11:00)
[2020-03-31] MEDS ORDERED: ACETAMINOPHEN 325MG TABLET PO PRN (11:00)
[2020-03-31] MEDS ORDERED: DOCUSATE SODIUM 100MG CAPSULE PO PRN (11:00)
[2020-03-31] MEDS ORDERED: DEXTROSE 50% WATER 50ML SYRINGE IV PRN ×2 (11:00)
[2020-03-31] MEDS ORDERED: CLONIDINE 0.1MG TABLET PO PRN (11:00)
[2020-03-31] MEDS: METFORMIN HCL 500MG TABLET PO SCH ×2 (11:43→16:54)
[2020-03-31] MEDS: FERROUS SULFATE 325MG TABLET PO SCH ×2 (11:43→16:54)
[2020-03-31] MEDS: PANTOPRAZOLE SODIUM 40 MG/VIAL IV SCH (11:44)
[2020-03-31] MEDS: CARVEDILOL 3.125 MG TABLET PO SCH ×2 (11:44→20:26)
[2020-03-31] MEDS: BLOOD SUGAR DIAGNOSTIC STRIP TEST SCH ×3 (11:51→20:23)
[2020-03-31 12:00] VITALS: BP 125/83
[2020-03-31] MEDS: CLOPIDOGREL 75MG TABLET PO SCH (12:08)
[2020-03-31] MEDS: INSULIN LISPRO 100 UNITS/ML SUBCUT SCH ×3 (12:09→20:26)
[2020-03-31 16:00] VITALS: BP 123/82
[2020-03-31 16:53] LABS: CLARITY URINE CLEAR (CLEAR); COLOR URINE YELLOW (YELLOW); KETONES URINE NEGATIVE (NEGATIVE); LEUKOCYTE ESTERASE URINE NEGATIVE (NEGATIVE); NITRITE URINE NEGATIVE (NEGATIVE); OCCULT BLOOD URINE NEGATIVE (NEGATIVE); PH URINE 5.5 (4.5-8.0); PROTEIN URINE 1+ (NEGATIVE); SPECIFIC GRAVITY URINE 1.024 (1.005-1.030); UROBILINOGEN URINE 0.2 E.U./dL (0.2-1.0)
[2020-03-31] MEDS: FUROSEMIDE 40MG/4ML VIAL IVP SCH (16:54)
[2020-03-31] MEDS: HYDROCODONE/ACETAMINOPHEN 5/325MG TABLET PO PRN ×2 (17:04→21:19)
[2020-03-31 17:09] LABS: *BARBITURATES SCREEN URINE NEGATIVE (NEGATIVE); *COCAINE SCREEN URINE NEGATIVE (NEGATIVE)
[2020-03-31 17:10] LABS: *AMPHETAMINES SCREEN URINE NEGATIVE (NEGATIVE); *BENZODIAZEPINES SCREEN URINE NEGATIVE (NEGATIVE); CANNABINOID URINE SCREEN PRESUMTIVE POSITIVE (NEGATIVE); METHADONE URINE SCREEN NEGATIVE (NEGATIVE); OPIATES URINE SCREEN NEGATIVE (NEGATIVE); PHENCYCLIDINE URINE SCREEN NEGATIVE (NEGATIVE)
[2020-03-31 17:12] LABS: CREATINE KINASE MB FRACTION 2.3 ng/mL (0.5-3.6)
[2020-03-31] MEDS: ATORVASTATIN CALCIUM 10MG TABLET PO SCH (20:25)
[2020-03-31] MEDS ORDERED: ATORVASTATIN CALCIUM 40MG TABLET PO SCH (21:00)
[2020-03-31] MEDS ORDERED: ATORVASTATIN CALCIUM 10MG TABLET PO SCH (21:00)
[2020-04-01] VITALS: BP 112/70
[2020-04-01 01:06] LABS: CREATINE KINASE MB FRACTION 2.3 ng/mL (0.5-3.6)
[2020-04-01 04:00] VITALS: BP 117/80
[2020-04-01] MEDS: BLOOD SUGAR DIAGNOSTIC STRIP TEST SCH ×4 (05:38→20:59)
[2020-04-01] MEDS: INSULIN LISPRO 100 UNITS/ML SUBCUT SCH ×4 (07:15→21:23)
[2020-04-01 07:37] LABS: BASOPHILS % 1.2 % (0.0-2.0); HEMATOCRIT. 28.2 % (42.0-52.0); HEMOGLOBIN. 8.9 g/dL (14.0-18.0); LYMPHOCYTES % 20.1 % (20.0-50.0); MEAN CORPUSCULAR HEMOGLOBIN 26.8 pg (28.0-32.0); MEAN CORPUSCULAR VOLUME 84.9 fL (80.0-94.0); MEAN PLATELET VOLUME 9.5 fl (7.4-10.4); MONOCYTES % 4.4 % (2.0-8.0); NEUTROPHILS % 71.3 % (40.0-76.0); PLATELET 211 x1000/uL (130-400); RED BLOOD CELL COUNT 3.32 mill/uL (4.7-6.1); RED CELL DISTRIBUTION WIDTH 17.9 % (11.6-14.6)
[2020-04-01 08:00] VITALS: BP 117/80
[2020-04-01 08:17] LABS: CHLORIDE 107 mEq/L (98-107)
[2020-04-01 08:26] LABS: PHOSPHORUS 4.3 mg/dL (2.5-4.9)
[2020-04-01 08:28] LABS: LDL CHOLESTEROL 30 mg/dL (5-100)
[2020-04-01 08:29] LABS: CREATINE KINASE MB FRACTION 2.6 ng/mL (0.5-3.6)
[2020-04-01 08:30] LABS: HDL CHOLESTEROL 25 mg/dL (40-59)
[2020-04-01] MEDS ORDERED: ENOXAPARIN 40MG/0.4ML SYR SUBCUT SCH (09:00)
[2020-04-01] MEDS: METFORMIN HCL 500MG TABLET PO SCH ×2 (09:22→17:32)
[2020-04-01] MEDS: FERROUS SULFATE 325MG TABLET PO SCH ×3 (09:22→17:32)
[2020-04-01] MEDS: CLOPIDOGREL 75MG TABLET PO SCH (09:22)
[2020-04-01] MEDS: CARVEDILOL 3.125 MG TABLET PO SCH ×2 (09:23→21:05)
[2020-04-01] MEDS: PANTOPRAZOLE SODIUM 40 MG/VIAL IV SCH (09:23)
[2020-04-01] MEDS: ASPIRIN 81MG EC TABLET PO SCH (09:23)
[2020-04-01] MEDS: FUROSEMIDE 40MG/4ML VIAL IVP SCH ×2 (09:23→17:32)
[2020-04-01 12:00] VITALS: BP 121/79
[2020-04-01 16:00] VITALS: BP 122/77
[2020-04-01] MEDS: HYDROCODONE/ACETAMINOPHEN 5/325MG TABLET PO PRN ×2 (17:32→22:14)
[2020-04-01 20:00] VITALS: BP 150/93
[2020-04-01] MEDS: FAMOTIDINE 20MG/2ML VIAL IV SCH (20:58)
[2020-04-01] MEDS: ATORVASTATIN CALCIUM 10MG TABLET PO SCH (20:59)
[2020-04-01] MEDS: ENOXAPARIN 40MG/0.4ML SYR SUBCUT SCH (20:59)
[2020-04-02] VITALS: BP 121/76
[2020-04-02 04:00] VITALS: BP 109/75
[2020-04-02 06:31] LABS: CHLORIDE 106 mEq/L (98-107)
[2020-04-02 06:40] LABS: EOSINOPHILS % 3.8 % (0.0-5.0); HEMATOCRIT. 26.1 % (42.0-52.0); HEMOGLOBIN. 8.3 g/dL (14.0-18.0); LYMPHOCYTES % 21.9 % (20.0-50.0); MEAN CORPUSCULAR HEMOGLOBIN 27.1 pg (28.0-32.0); MEAN CORPUSCULAR VOLUME 85.2 fL (80.0-94.0); MEAN PLATELET VOLUME 9.5 fl (7.4-10.4); MONOCYTES % 5.3 % (2.0-8.0); PLATELET 213 x1000/uL (130-400); RED BLOOD CELL COUNT 3.06 mill/uL (4.7-6.1); RED CELL DISTRIBUTION WIDTH 17.8 % (11.6-14.6)
[2020-04-02] MEDS: INSULIN LISPRO 100 UNITS/ML SUBCUT SCH ×4 (06:43→20:48)
[2020-04-02] MEDS: BLOOD SUGAR DIAGNOSTIC STRIP TEST SCH ×4 (06:43→20:49)
[2020-04-02] MEDS: METFORMIN HCL 500MG TABLET PO SCH ×2 (06:48→17:57)
[2020-04-02] MEDS: FERROUS SULFATE 325MG TABLET PO SCH ×3 (06:48→17:57)
[2020-04-02 08:00] VITALS: BP 126/82
[2020-04-02] MEDS: ASPIRIN 81MG EC TABLET PO SCH (09:53)
[2020-04-02] MEDS: CLOPIDOGREL 75MG TABLET PO SCH (09:53)
[2020-04-02] MEDS: ENOXAPARIN 40MG/0.4ML SYR SUBCUT SCH ×2 (09:53→20:46)
[2020-04-02] MEDS: FUROSEMIDE 40MG/4ML VIAL IVP SCH ×2 (09:54→17:57)
[2020-04-02] MEDS: FAMOTIDINE 20MG/2ML VIAL IV SCH ×2 (09:54→20:46)
[2020-04-02] MEDS: CARVEDILOL 3.125 MG TABLET PO SCH (09:54)
[2020-04-02] MEDS ORDERED: ATOR10TA PO (11:50)
[2020-04-02] MEDS ORDERED: POTA20TA82 MT (11:50)
[2020-04-02] MEDS ORDERED: METF500T PO (11:50)
[2020-04-02] MEDS ORDERED: CLOP75TA15 PO (11:50)
[2020-04-02] MEDS ORDERED: LOSA50TA41 MT (11:50)
[2020-04-02] MEDS ORDERED: COR3 PO (11:50)
[2020-04-02] MEDS ORDERED: FURO80TA87 MT (11:50)
[2020-04-02] MEDS ORDERED: ASPI-1158 PO (11:50)
[2020-04-02 12:00] VITALS: BP 120/77
[2020-04-02 13:34] LABS: TOTAL IRON BINDING CAPACITY 459 ug/dL (250-450)
[2020-04-02] MEDS ORDERED: FERR325T6 MT (15:28)
[2020-04-02] MEDS ORDERED: DOCU250C14 MT (15:28)
[2020-04-02 16:00] VITALS: BP 113/68
[2020-04-02] MEDS: HYDROCODONE/ACETAMINOPHEN 5/325MG TABLET PO PRN (18:01)
[2020-04-02 20:00] VITALS: BP 112/62
[2020-04-02] MEDS: CARVEDILOL 6.25 MG TABLET PO SCH (20:46)
[2020-04-02] MEDS: ATORVASTATIN CALCIUM 10MG TABLET PO SCH (20:47)
[2020-04-03] VITALS: BP 111/70
[2020-04-03 04:00] VITALS: BP 116/76
[2020-04-03] MEDS: METFORMIN HCL 500MG TABLET PO SCH ×2 (06:17→17:10)
[2020-04-03] MEDS: BLOOD SUGAR DIAGNOSTIC STRIP TEST SCH ×4 (06:18→20:57)
[2020-04-03] MEDS: INSULIN LISPRO 100 UNITS/ML SUBCUT SCH ×4 (06:18→21:06)
[2020-04-03] MEDS: FERROUS SULFATE 325MG TABLET PO SCH ×3 (06:18→17:10)
[2020-04-03 08:23] VITALS: BP 104/68
[2020-04-03] MEDS: CARVEDILOL 6.25 MG TABLET PO SCH ×2 (09:00→21:00)
[2020-04-03] MEDS: FUROSEMIDE 40MG/4ML VIAL IVP SCH ×2 (09:18→17:10)
[2020-04-03] MEDS: FAMOTIDINE 20MG/2ML VIAL IV SCH (09:18)
[2020-04-03] MEDS: ASPIRIN 81MG EC TABLET PO SCH (09:18)
[2020-04-03] MEDS: ENOXAPARIN 40MG/0.4ML SYR SUBCUT SCH ×2 (09:18→21:05)
[2020-04-03] MEDS: CLOPIDOGREL 75MG TABLET PO SCH (09:18)
[2020-04-03 12:00] VITALS: BP 120/99
[2020-04-03 16:00] VITALS: BP 117/78
[2020-04-03 16:52] LABS: BG BASE EXCESS 2.7 mmol/L (-2.0-2.0); BG CARBOXYHEMOGLOBIN 0.6 % (0.5-1.5); BG DEOXYHEMOGLOBIN 4.4 % (0.0-5.0); BG FRACTION INSPIRED OXYGEN 21; BG HCO3 ACT 26.2 mmol/L (22.0-26.0); BG METHEMOGLOBIN 0.1 % (0.0-1.5); BG OXYGEN SATURATION 95.6 % (92.0-98.5); BG OXYHEMOGLOBIN 94.9 % (94.0-97.0); BG PCO2 35.7 mmHg (35.0-45.0); BG PH 7.483 (7.350-7.450); BG PO2 77.3 mmHg (75.0-100.0); BG SAMPLE SITE RIGHT BRACHIAL; BG TOTAL HEMOGLOBIN 9.8 g/dL (12.0-18.0); BG VENT MODE ROOM AIR
[2020-04-03] MEDS: HYDROCODONE/ACETAMINOPHEN 5/325MG TABLET PO PRN (17:58)
[2020-04-03 20:00] VITALS: BP 100/57
[2020-04-03] MEDS: FAMOTIDINE 20MG TABLET PO SCH (21:05)
[2020-04-03] MEDS: ATORVASTATIN CALCIUM 20MG TABLET PO SCH (21:05)
[2020-04-04] VITALS: BP 116/63
[2020-04-04 04:00] VITALS: BP 104/59
[2020-04-04] MEDS: BLOOD SUGAR DIAGNOSTIC STRIP TEST SCH ×4 (07:07→20:39)
[2020-04-04] MEDS: INSULIN LISPRO 100 UNITS/ML SUBCUT SCH ×4 (07:09→20:31)
[2020-04-04] MEDS: METFORMIN HCL 500MG TABLET PO SCH ×2 (07:47→17:37)
[2020-04-04] MEDS: FERROUS SULFATE 325MG TABLET PO SCH ×3 (07:48→17:37)
[2020-04-04] MEDS: FAMOTIDINE 20MG TABLET PO SCH ×2 (08:37→20:38)
[2020-04-04] MEDS: ENOXAPARIN 40MG/0.4ML SYR SUBCUT SCH ×2 (08:38→20:38)
[2020-04-04] MEDS: CARVEDILOL 6.25 MG TABLET PO SCH ×2 (08:38→20:39)
[2020-04-04] MEDS: FUROSEMIDE 100MG/10ML VIAL IV SCH ×2 (08:38→17:37)
[2020-04-04] MEDS: ASPIRIN 81MG EC TABLET PO SCH (08:38)
[2020-04-04] MEDS: CLOPIDOGREL 75MG TABLET PO SCH (08:39)
[2020-04-04 12:00] VITALS: BP 104/66
[2020-04-04] MEDS: POTASSIUM CHLORIDE 20MEQ TABLET SR PO SCH (12:10)
[2020-04-04] MEDS: HYDROCODONE/ACETAMINOPHEN 5/325MG TABLET PO PRN ×2 (13:03→23:20)
[2020-04-04 16:00] VITALS: BP 112/63
[2020-04-04 20:25] VITALS: BP_SYST 125; BP_SYST 150; BP_DIAS 70; BP_DIAS 75
[2020-04-04] MEDS: ATORVASTATIN CALCIUM 20MG TABLET PO SCH (20:38)
[2020-04-05 00:12] VITALS: BP 108/70
[2020-04-05 04:00] VITALS: BP 109/63
[2020-04-05] MEDS: BLOOD SUGAR DIAGNOSTIC STRIP TEST SCH ×5 (05:45→22:19)
[2020-04-05] MEDS: FERROUS SULFATE 325MG TABLET PO SCH ×3 (06:14→17:27)
[2020-04-05] MEDS: INSULIN LISPRO 100 UNITS/ML SUBCUT SCH ×4 (06:15→20:26)
[2020-04-05 08:00] VITALS: BP 120/72
[2020-04-05] MEDS: METFORMIN HCL 500MG TABLET PO SCH ×2 (08:36→17:27)
[2020-04-05] MEDS: ASPIRIN 81MG EC TABLET PO SCH (08:36)
[2020-04-05] MEDS: POTASSIUM CHLORIDE 20MEQ TABLET SR PO SCH (08:36)
[2020-04-05] MEDS: FAMOTIDINE 20MG TABLET PO SCH ×2 (08:36→20:23)
[2020-04-05] MEDS: CLOPIDOGREL 75MG TABLET PO SCH (08:37)
[2020-04-05] MEDS: CARVEDILOL 6.25 MG TABLET PO SCH ×2 (08:37→22:19)
[2020-04-05] MEDS: FUROSEMIDE 100MG/10ML VIAL IV SCH ×2 (08:38→17:27)
[2020-04-05] MEDS: ENOXAPARIN 40MG/0.4ML SYR SUBCUT SCH ×2 (08:38→20:24)
[2020-04-05 12:00] VITALS: BP 123/78
[2020-04-05 16:00] VITALS: BP 116/75
[2020-04-05 20:00] VITALS: BP 126/81
[2020-04-05] MEDS: ATORVASTATIN CALCIUM 20MG TABLET PO SCH (20:23)
[2020-04-06 00:20] VITALS: BP 102/66
[2020-04-06 04:01] VITALS: BP 96/62
[2020-04-06] MEDS: FERROUS SULFATE 325MG TABLET PO SCH (06:14)
[2020-04-06] MEDS: INSULIN LISPRO 100 UNITS/ML SUBCUT SCH (06:20)
[2020-04-06 07:43] VITALS: BP 99/77
[2020-04-06] MEDS: FUROSEMIDE 100MG/10ML VIAL IV SCH (08:03)
[2020-04-06] MEDS: FAMOTIDINE 20MG TABLET PO SCH (08:04)
[2020-04-06] MEDS: ASPIRIN 81MG EC TABLET PO SCH (08:04)
[2020-04-06] MEDS: POTASSIUM CHLORIDE 20MEQ TABLET SR PO SCH (08:04)
[2020-04-06] MEDS: CLOPIDOGREL 75MG TABLET PO SCH (08:04)
[2020-04-06] MEDS: CARVEDILOL 6.25 MG TABLET PO SCH (08:04)
[2020-04-06] MEDS: ENOXAPARIN 40MG/0.4ML SYR SUBCUT SCH (08:04)
[2020-04-06] MEDS: METFORMIN HCL 500MG TABLET PO SCH (08:04)
[2020-04-06] MEDS ORDERED: HYDR-4001 MT (11:45)
== END 2020-04-06 10:45 | disposition left against medical advice (07) | DRG 194 ==
LOC: ER 00:53 → ENRESERV 07:21 → 5WST 08:50
PROVIDERS: ADMIT Internal Medicine; ATTEND Internal Medicine
DX: I13.0 Hypertensive heart and chronic kidney disease with heart failure and stage 1 through stage 4 chronic kidney disease, or unspecified chronic kidney disease (principal); J96.00 Acute respiratory failure, unspecified whether with hypoxia or hypercapnia; I50.23 Acute on chronic systolic (congestive) heart failure; D64.9 Anemia, unspecified; E11.22 Type 2 diabetes mellitus with diabetic chronic kidney disease; E11.65 Type 2 diabetes mellitus with hyperglycemia; E44.1 Mild protein-calorie malnutrition; I27.20 Pulmonary hypertension, unspecified; E11.40 Type 2 diabetes mellitus with diabetic neuropathy, unspecified; N17.0 Acute kidney failure with tubular necrosis; E78.5 Hyperlipidemia, unspecified; F12.90 Cannabis use, unspecified, uncomplicated; I25.5 Ischemic cardiomyopathy; K82.8 Other specified diseases of gallbladder; N18.2 Chronic kidney disease, stage 2 (mild); Z96.659 Presence of unspecified artificial knee joint; M86.9 Osteomyelitis, unspecified; E11.69 Type 2 diabetes mellitus with other specified complication; I89.0 Lymphedema, not elsewhere classified; L57.0 Actinic keratosis; I25.119 Atherosclerotic heart disease of native coronary artery with unspecified angina pectoris; Z53.29 Procedure and treatment not carried out because of patient's decision for other reasons; J44.9 Chronic obstructive pulmonary disease, unspecified; Z82.49 Family history of ischemic heart disease and other diseases of the circulatory system; I25.2 Old myocardial infarction; Z91.19 Patient's noncompliance with other medical treatment and regimen; Z95.5 Presence of coronary angioplasty implant and graft; Z79.891 Long term (current) use of opiate analgesic; Z79.2 Long term (current) use of antibiotics; Z79.899 Other long term (current) drug therapy; Z68.41 Body mass index [BMI] 40.0-44.9, adult
CPT/HCPCS: 36415; 36600; 71045; 71275; 73630; 80048; 80053; 80061; 80076; 80305; 81003; 82375; 82550; 82553; 82728; 82805; 82962; 83036; 83540; 83550; 83735; 83880; 84100; 84443; 84484; 85025; 85379; 93005; 93306; 93970; 94618; 97110; 97116; 97162; 97166; 97535; 99285; C9113; J1650; J1815; J1940; J3490; Q9967

== ENCOUNTER 2020-04-20 00:25 | Inpatient (IN) | payer MEDICAID ==
[~2020-04-20] VITALS: Ht 172.7 cm; Wt 102.5 kg
[~2020-04-20 00:25] MED LIST changes: +ASPI-1158 MT; +ASPI-1158 PO; +ATOR10TA PO; +ATOR80TA MT; +CARV3.1242 MT; +CLOP75TA15 PO; +COR3 PO; +DOCU250C14 MT; +FERR324T4 MT; +FERR325T6 MT; +FURO80TA3 MT; +FURO80TA87 MT; +LOSA50TA41 MT; +METF-414 MT; +METF500T PO; +POTA20TA82 MT; +VALS40TA11 MT
[2020-04-20] MEDS ORDERED: ASPIRIN 81MG TABLET PO ONE (01:15)
[2020-04-20 01:29] LABS: BASOPHILS % 0.9 % (0.0-2.0); EOSINOPHILS % 4.5 % (0.0-5.0); HEMATOCRIT. 30.4 % (42.0-52.0); HEMOGLOBIN. 9.7 g/dL (14.0-18.0); LYMPHOCYTES % 19.8 % (20.0-50.0); MEAN CORPUSCULAR HEMOGLOBIN 28.2 pg (28.0-32.0); MEAN CORPUSCULAR VOLUME 88.4 fL (80.0-94.0); MEAN PLATELET VOLUME 8.9 fl (7.4-10.4); NEUTROPHILS % 67.8 % (40.0-76.0); PLATELET 167 x1000/uL (130-400); RED BLOOD CELL COUNT 3.43 mill/uL (4.7-6.1)
[2020-04-20 01:34] LABS: CHLORIDE 108 mEq/L (98-107)
[2020-04-20 02:16] LABS: PLATELET ESTIMATE NORMAL
[2020-04-20] MEDS ORDERED: FUROSEMIDE 40MG TABLET PO NR (03:15)
[2020-04-20 08:00] VITALS: BP 140/94
[2020-04-20 08:30] VITALS: BP 140/94
[2020-04-20] MEDS ORDERED: IPRATROPIUM/ALBUTEROL 0.5-3(2.5)MG/3ML NEB HHN PRN (11:00)
[2020-04-20] MEDS ORDERED: DEXTROSE 50% WATER 50ML SYRINGE IV PRN (11:00)
[2020-04-20 12:00] VITALS: BP 129/83
[2020-04-20] MEDS: FUROSEMIDE 100MG/10ML VIAL IVP SCH ×2 (12:26→20:20)
[2020-04-20] MEDS: CLOPIDOGREL 75MG TABLET PO SCH (12:26)
[2020-04-20] MEDS: LOSARTAN POTASSIUM 25 MG TABLET PO SCH (12:26)
[2020-04-20] MEDS: BLOOD SUGAR DIAGNOSTIC STRIP TEST SCH ×3 (12:27→21:19)
[2020-04-20] MEDS: ENOXAPARIN 30MG/0.3ML SYR SUBCUT SCH ×2 (12:27→20:21)
[2020-04-20] MEDS: HYDROCODONE/ACETAMINOPHEN 5/325MG TABLET PO PRN ×2 (12:42→20:57)
[2020-04-20] MEDS: INSULIN LISPRO 100 UNITS/ML SUBCUT SCH ×3 (12:43→21:23)
[2020-04-20 16:00] VITALS: BP 120/78
[2020-04-20 20:00] VITALS: BP 131/91
[2020-04-20] MEDS: CARVEDILOL 12.5MG TABLET PO SCH (20:21)
[2020-04-20] MEDS: ZOLPIDEM TARTRATE 5MG TABLET PO PRN (21:19)
[2020-04-21] VITALS: BP 114/75
[2020-04-21 04:00] VITALS: BP 98/55
[2020-04-21] MEDS: FUROSEMIDE 100MG/10ML VIAL IVP SCH ×2 (06:00→17:19)
[2020-04-21] MEDS: BLOOD SUGAR DIAGNOSTIC STRIP TEST SCH ×4 (06:32→20:39)
[2020-04-21] MEDS: INSULIN LISPRO 100 UNITS/ML SUBCUT SCH ×4 (06:33→20:40)
[2020-04-21 08:00] VITALS: BP 116/77
[2020-04-21 08:07] LABS: CHLORIDE 105 mEq/L (98-107)
[2020-04-21] MEDS: CARVEDILOL 12.5MG TABLET PO SCH ×2 (09:00→20:21)
[2020-04-21] MEDS: ASPIRIN 81MG TABLET PO SCH (09:29)
[2020-04-21] MEDS: ENOXAPARIN 30MG/0.3ML SYR SUBCUT SCH ×2 (09:29→20:20)
[2020-04-21] MEDS: CLOPIDOGREL 75MG TABLET PO SCH (09:30)
[2020-04-21] MEDS: LOSARTAN POTASSIUM 25 MG TABLET PO SCH (09:30)
[2020-04-21 11:40] VITALS: BP 107/72
[2020-04-21 16:00] VITALS: BP 113/73
[2020-04-21] MEDS: DOCUSATE SODIUM 250MG CAPSULE PO SCH (17:19)
[2020-04-21] MEDS: FERROUS SULFATE 325MG TABLET PO SCH (17:19)
[2020-04-21 20:00] VITALS: BP 114/72
[2020-04-21] MEDS: HYDROCODONE/ACETAMINOPHEN 5/325MG TABLET PO PRN (20:21)
[2020-04-21] MEDS: ZOLPIDEM TARTRATE 5MG TABLET PO PRN (21:25)
[2020-04-22] VITALS: BP_SYST 90; BP_SYST 96; BP_DIAS 83; BP_DIAS 89
[2020-04-22 04:00] VITALS: BP 109/77
[2020-04-22] MEDS: BLOOD SUGAR DIAGNOSTIC STRIP TEST SCH ×4 (06:34→21:00)
[2020-04-22] MEDS: INSULIN LISPRO 100 UNITS/ML SUBCUT SCH ×4 (06:34→21:00)
[2020-04-22] MEDS: FUROSEMIDE 100MG/10ML VIAL IVP SCH ×2 (06:34→18:12)
[2020-04-22] MEDS: FERROUS SULFATE 325MG TABLET PO SCH ×3 (06:34→18:12)
[2020-04-22 07:40] LABS: BASOPHILS % 1.1 % (0.0-2.0); EOSINOPHILS % 4.6 % (0.0-5.0); HEMATOCRIT. 28.7 % (42.0-52.0); HEMOGLOBIN. 9.1 g/dL (14.0-18.0); LYMPHOCYTES % 22.3 % (20.0-50.0); MEAN CORPUSCULAR VOLUME 88.6 fL (80.0-94.0); MEAN PLATELET VOLUME 9.4 fl (7.4-10.4); MONOCYTES % 7.8 % (2.0-8.0); NEUTROPHILS % 64.2 % (40.0-76.0); PLATELET 147 x1000/uL (130-400); RED BLOOD CELL COUNT 3.24 mill/uL (4.7-6.1); RED CELL DISTRIBUTION WIDTH 21.8 % (11.6-14.6)
[2020-04-22 08:00] VITALS: BP 105/72
[2020-04-22] MEDS: CARVEDILOL 12.5MG TABLET PO SCH ×2 (08:36→22:29)
[2020-04-22] MEDS: LOSARTAN POTASSIUM 25 MG TABLET PO SCH (08:36)
[2020-04-22] MEDS: ENOXAPARIN 30MG/0.3ML SYR SUBCUT SCH ×2 (08:46→22:30)
[2020-04-22] MEDS: DOCUSATE SODIUM 250MG CAPSULE PO SCH (08:47)
[2020-04-22] MEDS: CLOPIDOGREL 75MG TABLET PO SCH (08:47)
[2020-04-22] MEDS: ASPIRIN 81MG TABLET PO SCH (08:47)
[2020-04-22] MEDS: INSULIN GLARGINE UD 100 UNITS/ML SYR SUBCUT SCH (10:34)
[2020-04-22 12:00] VITALS: BP 114/74
[2020-04-22] MEDS: HYDROCODONE/ACETAMINOPHEN 5/325MG TABLET PO PRN (14:39)
[2020-04-22 16:00] VITALS: BP 116/78
[2020-04-22 20:00] VITALS: BP 125/83
[2020-04-23] VITALS: BP 119/79
[2020-04-23 04:00] VITALS: BP 104/63
[2020-04-23] MEDS: FERROUS SULFATE 325MG TABLET PO SCH ×3 (06:28→18:17)
[2020-04-23] MEDS: FUROSEMIDE 100MG/10ML VIAL IVP SCH ×2 (06:28→18:00)
[2020-04-23] MEDS: BLOOD SUGAR DIAGNOSTIC STRIP TEST SCH ×4 (06:50→21:15)
[2020-04-23] MEDS: INSULIN LISPRO 100 UNITS/ML SUBCUT SCH ×4 (06:52→21:58)
[2020-04-23 08:03] LABS: CHLORIDE 103 mEq/L (98-107)
[2020-04-23] MEDS: LOSARTAN POTASSIUM 25 MG TABLET PO SCH (08:42)
[2020-04-23] MEDS: CARVEDILOL 12.5MG TABLET PO SCH ×2 (08:42→20:55)
[2020-04-23] MEDS: CLOPIDOGREL 75MG TABLET PO SCH (08:43)
[2020-04-23] MEDS: DOCUSATE SODIUM 250MG CAPSULE PO SCH (08:43)
[2020-04-23] MEDS: ASPIRIN 81MG TABLET PO SCH (08:43)
[2020-04-23] MEDS: ENOXAPARIN 30MG/0.3ML SYR SUBCUT SCH ×2 (09:00→20:55)
[2020-04-23] MEDS ORDERED: LIDOCAINE HCL 1% 20ML VIAL (Pyxis) INJ INFIL NR (10:30)
[2020-04-23] MEDS: INSULIN GLARGINE UD 100 UNITS/ML SYR SUBCUT SCH (11:42)
[2020-04-23] MEDS ORDERED: FURO80TA87 MT (11:56)
[2020-04-23] MEDS ORDERED: ATOR10TA PO (11:56)
[2020-04-23] MEDS ORDERED: FERR325T23 PO (11:56)
[2020-04-23] MEDS ORDERED: METF-416 MT (11:56)
[2020-04-23] MEDS ORDERED: DOCU250C14 PO (11:56)
[2020-04-23] MEDS ORDERED: ASPI-1158 PO (11:56)
[2020-04-23] MEDS ORDERED: HYDR-4001 PO (11:56)
[2020-04-23] MEDS ORDERED: CLOP75TA15 PO (11:56)
[2020-04-23] MEDS ORDERED: COR12 PO (11:56)
[2020-04-23] MEDS ORDERED: POTA20TA82 MT (11:56)
[2020-04-23] MEDS ORDERED: SITA100T11 MT (11:57)
[2020-04-23 12:00] VITALS: BP 113/76
[2020-04-23] MEDS: HYDROCODONE/ACETAMINOPHEN 5/325MG TABLET PO PRN (13:28)
[2020-04-23 16:00] VITALS: BP 95/62
[2020-04-23 19:24] LABS: BG BASE EXCESS 0.7 mmol/L (-2.0-2.0); BG FRACTION INSPIRED OXYGEN 21; BG HCO3 ACT 24.6 mmol/L (22.0-26.0); BG METHEMOGLOBIN 0.5 % (0.0-1.5); BG OXYHEMOGLOBIN 96.5 % (94.0-97.0); BG PCO2 36.4 mmHg (35.0-45.0); BG PH 7.447 (7.350-7.450); BG PO2 91.5 mmHg (75.0-100.0); BG SAMPLE SITE LEFT BRACHIAL; BG TOTAL HEMOGLOBIN 10.5 g/dL (12.0-18.0); BG VENT MODE ROOM AIR
[2020-04-23 20:00] VITALS: BP 116/78
[2020-04-24] VITALS (7 sets, daily range): BP systolic 98–120; BP diastolic 61–78
[2020-04-24] MEDS: FERROUS SULFATE 325MG TABLET PO SCH ×3 (06:19→17:37)
[2020-04-24] MEDS: BLOOD SUGAR DIAGNOSTIC STRIP TEST SCH ×3 (06:20→17:18)
[2020-04-24] MEDS: FUROSEMIDE 100MG/10ML VIAL IVP SCH ×2 (06:20→17:38)
[2020-04-24] MEDS: INSULIN LISPRO 100 UNITS/ML SUBCUT SCH ×3 (06:30→17:37)
[2020-04-24] MEDS: ASPIRIN 81MG TABLET PO SCH (08:20)
[2020-04-24] MEDS: DOCUSATE SODIUM 250MG CAPSULE PO SCH (08:20)
[2020-04-24] MEDS: ENOXAPARIN 30MG/0.3ML SYR SUBCUT SCH (08:21)
[2020-04-24] MEDS: CLOPIDOGREL 75MG TABLET PO SCH (08:21)
[2020-04-24] MEDS: LOSARTAN POTASSIUM 25 MG TABLET PO SCH (08:21)
[2020-04-24] MEDS: CARVEDILOL 12.5MG TABLET PO SCH (08:21)
[2020-04-24] MEDS: HYDROCODONE/ACETAMINOPHEN 5/325MG TABLET PO PRN (10:18)
[2020-04-24] MEDS: INSULIN GLARGINE UD 100 UNITS/ML SYR SUBCUT SCH (10:49)
[2020-04-24] MEDS ORDERED: TRAZ-251 MT (15:24)
== END 2020-04-24 19:46 | disposition home or self-care (01) | DRG 469 ==
LOC: ER 00:25 → 5WST 03:58 → ENRESERV 07:21
PROVIDERS: ADMIT Internal Medicine; ATTEND Internal Medicine
DX: N17.0 Acute kidney failure with tubular necrosis (principal); I13.0 Hypertensive heart and chronic kidney disease with heart failure and stage 1 through stage 4 chronic kidney disease, or unspecified chronic kidney disease; D64.9 Anemia, unspecified; E11.9 Type 2 diabetes mellitus without complications; E66.9 Obesity, unspecified; E78.5 Hyperlipidemia, unspecified; E87.8 Other disorders of electrolyte and fluid balance, not elsewhere classified; F12.90 Cannabis use, unspecified, uncomplicated; I25.10 Atherosclerotic heart disease of native coronary artery without angina pectoris; I27.20 Pulmonary hypertension, unspecified; I42.9 Cardiomyopathy, unspecified; I50.23 Acute on chronic systolic (congestive) heart failure; M43.16 Spondylolisthesis, lumbar region; M47.816 Spondylosis without myelopathy or radiculopathy, lumbar region; M48.00 Spinal stenosis, site unspecified; M48.061 Spinal stenosis, lumbar region without neurogenic claudication; M54.9 Dorsalgia, unspecified; R26.2 Difficulty in walking, not elsewhere classified; Z95.5 Presence of coronary angioplasty implant and graft; Z96.659 Presence of unspecified artificial knee joint; M79.606 Pain in leg, unspecified; Z79.899 Other long term (current) drug therapy; G89.29 Other chronic pain; N18.2 Chronic kidney disease, stage 2 (mild)
CPT/HCPCS: 36415; 36600; 71045; 72148; 80048; 80053; 82375; 82805; 82962; 83880; 84484; 85025; 93923; 94618; 99291; J1650; J1815; J1940; J3490

== ENCOUNTER 2020-05-05 20:55 | Emergency (ER) | payer MEDICAID ==
[~2020-05-05] VITALS: Ht 172.7 cm; Wt 107.0 kg
[~2020-05-05 20:55] MED LIST changes: -AMOX-424 MT; +COR12 PO; +DOCU250C14 PO; -DOXY100T2 MT; +FERR325T23 PO; +HYDR-4001 PO; -METF-414 MT; +METF-416 MT; -METF500T PO; +SITA100T11 MT; +TRAZ-251 MT; -VALS40TA11 MT
[2020-05-05] MEDS ORDERED: ACETAMINOPHEN 325MG TABLET PO ONE (22:30)
[2020-05-05] MEDS ORDERED: SULFAMETHOXAZOLE/TRIMETHOPRIM 800/160MG TABLET PO ONE (22:30)
[2020-05-05] MEDS ORDERED: CEPHALEXIN 250MG CAPSULE PO ONE (22:30)
[2020-05-05 23:50] VITALS: BP 125/87
[2020-05-27] MEDS ORDERED: HYDR-4009 MT (13:20)
== END 2020-05-05 23:51 | disposition home or self-care (01) ==
LOC: ER 20:55
DX: S90.424A Blister (nonthermal), right lesser toe(s), initial encounter (principal); I11.0 Hypertensive heart disease with heart failure; E11.9 Type 2 diabetes mellitus without complications; I50.9 Heart failure, unspecified; Z79.899 Other long term (current) drug therapy; X58.XXXA Exposure to other specified factors, initial encounter; Y93.89 Activity, other specified; Y92.89 Other specified places as the place of occurrence of the external cause; Y99.8 Other external cause status
CPT/HCPCS: 99284